=== PATIENT | male | born 1960 | race Caucasian/White ===

== ENCOUNTER 2017-03-20 08:39 | Emergency (ER) | payer BC ==
[2017-03-20 09:01] VITALS: BP 150/102
--- NOTE | 2017-03-20 09:15 | UC ---
Back Pain HPI - HPI Summary HPI Summary: right lower back pain x 5 days no known injury , has been helping a friend with heavy lifting no radiation of the pain no lower ext weakness , numbness - History of Current Complaint Chief Complaint: UCBackPain Stated Complaint: BACK PAIN,RIGHT HIP PAIN Time Seen by Provider: 03/20/17 09:02 Hx Obtained From: Patient Onset/Duration: Gradual Onset, Lasting Days - 5, Still Present Timing: Constant Severity Initially: Moderate Severity Currently: Moderate Back Pain: Is Discrete @ - right lower back pain Character: Aching Aggravating: Movement, Lifting, Bending, Walking, Cough Alleviating: Rest Associated Signs And Symptoms: Positive: Pain with Weight Bearing. Negative: Swelling, Redness, Fever, Weakness, Numbness, Tingling, Abdominal Pain, Flank Pain - Allergies/Home Medications Allergies/Adverse Reactions: Allergies Allergy/AdvReac Type Severity Reaction Status Date / Time No Known Allergies Allergy Verified 03/20/17 08:48 Home Medications: Home Medications Cyclobenzaprine TAB* [Flexeril 10 MG TAB*] 1 tab PRN 03/20/17 [History] PMH/Surg Hx/FS Hx/Imm Hx Psychological History: Depression - Surgical History Surgical History: Yes Surgery Procedure, Year, and Place: Appy age 27. Hernia - Family History Known Family History: Negative: Diabetes - Social History Alcohol Use: Occasionally Substance Use Type: None Smoking Status (MU): Never Smoked Tobacco - Immunization History Most Recent Influenza Vaccination: NONE 2015 Most Recent Tetanus Shot: UTD Review of Systems Constitutional: Negative Skin: Negative Eyes: Negative ENT: Negative Musculoskeletal: Other: - right lower back pain All Other Systems Reviewed And Are Negative: Yes Physical Exam Triage Information Reviewed: Yes Appearance: Well-Appearing, No Pain Distress, Well-Nourished Vital Signs: Initial Vital Signs Temp 99.3 F 03/20/17 08:50 Pulse 99 03/20/17 08:50 Resp 18 03/20/17 08:50 BP 150/102 03/20/17 08:50 Pulse Ox 97 03/20/17 08:50 Vital Signs Reviewed: Yes Eyes: Positive: Conjunctiva Clear ENT: Positive: Normal ENT inspection, Hearing grossly normal, Pharynx normal Neck exam: Normal Neck: Positive: Supple, Nontender, No Lymphadenopathy Respiratory: Positive: Chest non-tender, Lungs clear, Normal breath sounds, No respiratory distress Cardiovascular: Positive: RRR, No Murmur, Pulses Normal Abdominal Exam: Normal Abdomen Description: Positive: Nontender, Soft Bowel Sounds: Positive: Present Musculoskeletal: Positive: Other: - lower back : no swelling, no erythema, no spasm ,no tenderness pain with any ROM including flexion and extension Back Pain Course/Dx - Course Course Of Treatment: elevated blood pressure due to current medical condition. pt. will follow up with his pcp to recheck bp - Differential Dx/Diagnosis Provider Diagnoses: lower back strain Discharge - Discharge Plan Condition: Stable Disposition: HOME Prescriptions: Cyclobenzaprine TAB* [Flexeril 10 MG TAB*] 10 mg PO BID #20 tab Hydrocodone-Acetaminophen [Hydrocodone/Acetaminophen 5-325 mg] 1 tab PO Q6H PRN #15 tab MDD 4 PRN Reason: Pain Naproxen [Naprosyn 500 mg] 500 mg PO BID #20 tab Patient Education Materials: Low Back Strain (ED) Referrals: Emily Rojas MD [Primary Care Provider] - 5 Days
== END 2017-03-20 09:25 | disposition home or self-care (01) ==
LOC: UCCORT 08:39
DX: S39.012A Strain of muscle, fascia and tendon of lower back, initial encounter (principal); X50.0XXA Overexertion from strenuous movement or load, initial encounter; F32.9 Major depressive disorder, single episode, unspecified
CPT/HCPCS: 99212; G0463

== ENCOUNTER 2017-09-25 09:03 | Emergency (ER) | payer BC ==
[2017-09-25 11:10] VITALS: BP 138/110
--- NOTE | 2017-09-25 11:12 | UC ---
Throat Pain/Nasal Aniceto HPI - HPI Summary HPI Summary: Pt is c/o sinus congestion with R ear pain and yellow drainage plus post nasal drip. He states this has been going on for 3 weeks and is making him fatigued. He states he has had sinus infections ihn past that have felt the same. He denies ADAN, sore throat, chest pain, sob, fever and chills. - History of Current Complaint Chief Complaint: UCRespiratory Stated Complaint: COLD SYMPTOMS Time Seen by Provider: 09/25/17 10:55 Hx Obtained From: Patient Onset/Duration: Gradual Onset Severity: Moderate Pain Intensity: 0 Associated Signs & Symptoms: Positive: Sinus Discomfort, Nasal Discharge. Negative: Hoarseness, Fever - Allergies/Home Medications Allergies/Adverse Reactions: Allergies Allergy/AdvReac Type Severity Reaction Status Date / Time No Known Allergies Allergy Verified 09/25/17 10:14 Home Medications: Home Medications Aspirin 325 mg PO 09/25/17 [History] PMH/Surg Hx/FS Hx/Imm Hx Previously Healthy: Yes - depression, gout, high chol, per triage notes - Surgical History Surgical History: Yes Surgery Procedure, Year, and Place: APPENDECTOMY- age 27. Hernia - Family History Known Family History: Negative: Diabetes - Social History Alcohol Use: Occasionally Substance Use Type: None Smoking Status (MU): Never Smoked Tobacco - Immunization History Most Recent Influenza Vaccination: NONE 2016 Most Recent Tetanus Shot: UTD Review of Systems Constitutional: Fatigue Skin: Negative Eyes: Negative ENT: Nasal Discharge, Sinus Congestion, Sinus Pain/Tenderness Respiratory: Other - no sob Cardiovascular: Negative Gastrointestinal: Negative Genitourinary: Negative Neurological: Negative Is Patient Immunocompromised?: No All Other Systems Reviewed And Are Negative: Yes - Comments Additional Review of Systems Comments: denies hx htn but notes always elevated with illness when he sees his pcp but then normal when well. Physical Exam Triage Information Reviewed: Yes Appearance: Well-Appearing Vital Signs: Initial Vital Signs Temp 97.4 F 09/25/17 10:10 Pulse 68 09/25/17 10:10 Resp 18 09/25/17 10:10 BP 163/105 09/25/17 10:10 Pulse Ox 98 09/25/17 10:10 Vital Signs Reviewed: Yes Eye Exam: Normal ENT: Positive: Pharynx normal, Nasal congestion, Nasal drainage, TMs normal, Sinus tenderness - maxillary along with yellow discharge Neck: Positive: Supple, Nontender, No Lymphadenopathy Respiratory: Positive: Lungs clear, Normal breath sounds, No respiratory distress Cardiovascular: Positive: RRR, No Murmur, Pulses Normal Abdomen Description: Positive: Nontender, No Organomegaly, Soft Bowel Sounds: Positive: Present Neurological Exam: Normal Psychological Exam: Normal Skin Exam: Normal Throat Pain/Nasal Course/Dx - Course Course Of Treatment: NO HX HTN, REPEAT BP 138/110. NOTHING TO SUGGEST HYPERTENSIVE URGENCY OR EMERGENCY. AT TIME OF EXAM NEED FOR CLOSE F/U WITH BP EVALUATION STRESSED. EXAM AND HX C/W SINUSITIS - Differential Dx/Diagnosis Provider Diagnoses: SINUSITIS, ELEVATED BP Discharge - Discharge Plan Condition: Stable Disposition: HOME Prescriptions: Amoxicillin/Clavulanate TAB* [Augmentin TAB 875*] 875 mg PO BID 10 Days #20 tab Patient Education Materials: Sinusitis (ED), Hypertension (ED) Referrals: Emily Rojas MD [Primary Care Provider] - 5 Days
== END 2017-09-25 11:36 | disposition home or self-care (01) ==
LOC: UCCORT 09:03
DX: J32.9 Chronic sinusitis, unspecified (principal); R03.0 Elevated blood-pressure reading, without diagnosis of hypertension
CPT/HCPCS: 99212; G0463

== ENCOUNTER 2017-10-12 11:19 | Emergency (ER) | payer BC ==
[2017-10-12 12:23] VITALS: BP 145/97
[2017-10-12 18:47] LABS: ABS Basophils 0 10^3/ul (0-0.2); ABS Eosinophils 0.4 10^3/ul (0-0.6); ABS Lymphocytes 1.1 10^3/ul (1.0-4.8); ABS Monocytes 0.7 10^3/ul (0-0.8); ABS Neutrophils 2.9 10^3/ul (1.5-7.7); ABS Nucleated RBC 0 10^3/ul; Eosinophil % 7.9 % (0-6); Hematocrit 44 % (42-52); Hemoglobin 15.1 g/dl (14.0-18.0); Lymphocyte % 21.4 % (25-47); Mean Corpuscular HGB Conc 34 g/dl (31-36); Mean Corpuscular Hemoglobin 30 pg (27-31); Mean Corpuscular Volume 88 fL (80-94); Mean Platelet Volume 8 um3 (7.4-10.4); Nucleated Red Blood Cells % 0.1; Platelet Count 268 10^3/ul (150-450); Red Blood Count 5.01 10^6/ul (4.0-5.4); Red Cell Distribution Width 13 % (10.5-15); White Blood Count 5.1 10^3/ul (3.5-10.8)
[2017-10-12 19:32] LABS: EGFR Non-African American 76.1 (>60)
--- NOTE | 2017-10-14 07:08 | UC ---
Throat Pain/Nasal Aniceto HPI - HPI Summary HPI Summary: sinus pain and pressure x 5 weeks was placed on antibiotics recently but still not feeling better, cough , nasal congestion , no fever his concern is being fatigue and has no energy - History of Current Complaint Chief Complaint: UCRespiratory Stated Complaint: ADAN/ST/COUGH Time Seen by Provider: 10/12/17 12:36 Hx Obtained From: Patient Onset/Duration: Gradual Onset, Lasting Weeks - 5, Still Present Severity: Moderate Pain Intensity: 6 Pain Scale Used: 0-10 Numeric Cough: Nonproductive Associated Signs & Symptoms: Positive: Sinus Discomfort, Nasal Discharge. Negative: Dysphagia, FB Sensation, Drooling, Wheezing, Hoarseness, Fever, Vomiting, Rash - Allergies/Home Medications Allergies/Adverse Reactions: Allergies Allergy/AdvReac Type Severity Reaction Status Date / Time No Known Allergies Allergy Verified 10/12/17 12:23 PMH/Surg Hx/FS Hx/Imm Hx - Additional Past Medical History Additional PMH: Gout - Surgical History Surgical History: Yes Surgery Procedure, Year, and Place: APPENDECTOMY- age 27. Hernia - Family History Known Family History: Negative: Diabetes - Social History Alcohol Use: Occasionally Substance Use Type: None Smoking Status (MU): Never Smoked Tobacco - Immunization History Most Recent Influenza Vaccination: NONE 2016 Most Recent Tetanus Shot: UTD Review of Systems Constitutional: Chills, Fatigue Skin: Negative Eyes: Negative ENT: Nasal Discharge, Sinus Congestion Respiratory: Cough Cardiovascular: Negative Gastrointestinal: Negative Is Patient Immunocompromised?: No All Other Systems Reviewed And Are Negative: Yes Physical Exam Triage Information Reviewed: Yes Appearance: Well-Appearing, No Pain Distress, Well-Nourished Vital Signs: Initial Vital Signs Temp 97.9 F 10/12/17 12:20 Pulse 85 10/12/17 12:20 Resp 18 10/12/17 12:20 BP 145/97 10/12/17 12:20 Pulse Ox 97 10/12/17 12:20 Vital Signs Reviewed: Yes Eye Exam: Normal Eyes: Positive: Conjunctiva Clear ENT: Positive: Normal ENT inspection, Hearing grossly normal, Pharynx normal, Nasal congestion, TMs normal Neck: Positive: Supple, Nontender, No Lymphadenopathy Respiratory: Positive: Chest non-tender, Lungs clear, Normal breath sounds, No respiratory distress Cardiovascular: Positive: RRR, No Murmur, Pulses Normal Abdominal Exam: Normal Skin Exam: Normal Throat Pain/Nasal Course/Dx - Course Course Of Treatment: will check cbc, cmp , tsh. elevated bp : monitor your bp daily , follow up with your pcp in one week - Differential Dx/Diagnosis Provider Diagnoses: fatigue. elevated blood pressure Discharge - Discharge Plan Condition: Stable Disposition: HOME Patient Education Materials: Fatigue (ED) Referrals: Emily Rojas MD [Primary Care Provider] - 5 Days Additional Instructions: cold sx for more than 5 weeks no improving sever fatigue will check cbc, cmp , tsh, call the office in one day for the blood work results follow up with your pcp in one week
== END 2017-10-12 13:00 | disposition home or self-care (01) ==
LOC: UCCORT 11:19
DX: R53.83 Other fatigue (principal); R03.0 Elevated blood-pressure reading, without diagnosis of hypertension; R09.81 Nasal congestion; R05 Cough
CPT/HCPCS: 36415; 80053; 84443; 85025; 99211; G0463